=== PATIENT | female | born 1935 | race Caucasian/White ===

== ENCOUNTER 2019-06-09 08:30 | Day surgery (SDC) | payer MEDICARE ==
[2019-06-08 10:31] VITALS: BMI 27.3
[2019-06-09] MEDS ORDERED: ceFAZolin Sodium (SDC) 2 GM/100 ML BAG ONE (09:20)
[2019-06-09 09:41] LABS: #Eosinphils 0.1 thou/uL (0.0-0.7); #Lymphocytes 1.8 thou/uL (1.20-3.40); #Monocytes 0.5 thou/uL (0.11-0.59); #Neutrophils 2.3 thou/uL (1.40-6.50); %Basophils 0.8 % (0.0-1.0); %Eosinophils 1.4 % (0.0-10.0); %Lymphocytes 37.6 % (21.0-51.0); %Monocytes 10.4 % (0.0-10.0); %Neutrophils 49.9 % (42.0-75.0); Hemoglobin 14.7 g/dL (12.0-16.0); Mean Corpuscular HGB CONC 33.4 g/dL (32.0-36.0); Mean Corpuscular Volume 95.8 fL (78.0-98.0); Mean Platelet Volume 6.5 fL (7.4-10.4); Platelet Count 219 thou/uL (130-400); RBC Distribution Width 12.6 % (11.5-14.5); Red Blood Cell (RBC) Count 4.58 mill/uL (4.20-5.40); White Blood Cell (WBC) Count 4.7 thou/uL (4.8-10.8)
[2019-06-09] MEDS ORDERED: Lidocaine 1% (PF) 30 ML VIAL ONE (11:11)
[2019-06-09] MEDS ORDERED: Ondansetron PF 4 MG/2 ML Vial ONE (15:38)
[2019-06-09] MEDS ORDERED: PROPOFOL 200 MG/20 ML VIAL ONE (15:38)
--- NOTE | 2019-06-09 16:11 | OP ---
DATE OF PROCEDURE: 06/09/2019 PREOPERATIVE DIAGNOSIS: Left carpal tunnel syndrome. POSTOPERATIVE DIAGNOSIS: Left carpal tunnel syndrome. PROCEDURE PERFORMED: 1. Left open carpal tunnel release 2. Placement of volar splint Left arm PRECISION MACHINING INSTRUCTOR: None. BLOOD LOSS: Minimal. COMPLICATIONS: None. ANESTHESIA: The patient had a TIVA with local. DISPOSITION: She went back to Day [facility] in stable condition. INDICATIONS: This 83-year-old female who since breaking her wrist has had increasing numbness and tingling secondary to pressure on median nerve, and at this time, is presenting for release of this. DESCRIPTION OF PROCEDURE: After all appropriate consent forms were explained and signed, the patient was taken back to the operating room and at this time was given IV sedation. A well-padded tourniquet was placed on the left arm and the arm was then prepped and draped in the standard surgical fashion. The incision was then drawn out and infiltrated with plain lidocaine. Limb was exsanguinated and tourniquet taken up to 250 mmHg. At this time, using Loupe magnification, a 15 blade was used to incise down through skin. Bipolar cautery was used to coagulate any brisk venous bleeding. We then placed a small hemostat to protect the underlying median nerve and transected the transverse carpal ligament using multiple 15 blades as well as scissors. Once this was done, a small finger was inserted to palpate for any remaining bands. At this time, a moist Ray-Donnell sponge was placed into the wound. Tourniquet was let down and pressure was held. Bipolar cautery used to coagulate any brisk venous bleeding. The wound was then irrigated with saline solution and we then evaluated the nerve. The nerve was found to be significantly injected, the nerve was intact, there were no masses noted, and the underlying flexor tendons were in good condition. At this time, we irrigated and dried the wound. We then placed multiple nylon stitches to close the incision. A bulky sterile hand dressing and a small volar splint were then placed. The patient was then awakened and taken to recovery in stable condition. All counts were correct at the end of the case. The patient received preoperative IV antibiotics. Job ID: [id number] [facility]
== END 2019-06-09 12:48 | disposition home or self-care (01) ==
LOC: SDC 08:30
PROVIDERS: ATTEND Orthopaedic Surgery
PROC: 01N50ZZ Release Median Nerve, Open Approach (ICD-10-PCS; principal; 2019-06-09)
DX: G56.02 Carpal tunnel syndrome, left upper limb (principal); M81.0 Age-related osteoporosis without current pathological fracture; D64.9 Anemia, unspecified; E78.00 Pure hypercholesterolemia, unspecified; G40.909 Epilepsy, unspecified, not intractable, without status epilepticus; Z88.2 Allergy status to sulfonamides; Z88.5 Allergy status to narcotic agent; Z79.51 Long term (current) use of inhaled steroids; Z79.82 Long term (current) use of aspirin; Z79.899 Other long term (current) drug therapy
CPT/HCPCS: 85025; J0690; J2001; J2405; J2704

== ENCOUNTER 2022-04-17 14:17 | Outpatient (CLI) | payer MEDICARE ==
[2022-04-17 16:02] LABS: #Monocytes 0.7 10x3/uL (0.0-1.1); #Neutrophils 2.4 10x3/uL (1.5-8.4); %Basophils 0.5 % (0.0-2.0); %Eosinophils 0.7 % (0.0-6.0); %Lymphocytes 46.9 % (18.0-47.0); %Monocytes 11.3 % (0.0-10.0); %Neutrophils 40.4 % (40.0-75.0); Hemoglobin 14.4 g/dL (12.0-15.5); Mean Corpuscular HGB CONC 35.5 g/dL (32.0-36.0); Mean Corpuscular Hemoglobin 33.4 pg (27.0-33.0); Mean Corpuscular Volume 94.2 fl (81.6-98.3); Mean Platelet Volume 9.4 fl (7.4-10.4); Platelet Count 251 10x3/uL (150-450); RBC Distribution Width 12.9 % (11.5-14.5); Red Blood Cell (RBC) Count 4.31 10x6/uL (3.90-5.03); White Blood Cell (WBC) Count 5.9 10x3/uL (3.5-10.5)
[2022-04-17 16:22] LABS: Anion Gap 16 mmol/L (10-20); BUN (Urea Nitrogen) 12 mg/dL (9.8-20.1); Calc. Creatinine Clearance 0 mL/min (70-130); Calcium 9.5 mg/dL (7.8-10.44); Carbon Dioxide 25 mmol/L (23-31); Chloride 103 mmol/L (98-107); Glucose 89 mg/dL (83-110); Potassium 3.8 mmol/L (3.5-5.1); Sodium 140 mmol/L (136-145)
[2022-04-17 16:23] LABS: PTT 26.7 sec (22.0-33.0); Prothrombin Time 11.2 sec (9.5-12.1)
== END 2022-04-17 14:18 | disposition home or self-care (01) ==
LOC: LABBT 14:17
PROVIDERS: ATTEND Orthopaedic Surgery
DX: Z01.818 Encounter for other preprocedural examination (principal); M12.811 Other specific arthropathies, not elsewhere classified, right shoulder; Z20.822 Contact with and (suspected) exposure to COVID-19
CPT/HCPCS: 80048; 85025; 85610; 85730; 87081; 93005; U0003; U0005; 93010

== ENCOUNTER 2022-04-22 05:36 | Observation (INO) | payer MEDICARE ==
[2022-04-21 09:37] VITALS: BMI 28.3
[2022-04-22] MEDS ORDERED: Sodium Chloride 0.9% 100 ML ONE ×2 (05:45→06:56)
[2022-04-22] MEDS ORDERED: Tranexamic Acid 1,000 MG/10 ML VIAL ONE (05:45)
[2022-04-22] MEDS ORDERED: Vancomycin 1 GM/200 ML BAG ONE (05:45)
[2022-04-22] MEDS ORDERED: Midazolam HCl 2 mg/2 ml Vial ONE (06:34)
[2022-04-22] MEDS ORDERED: Fentanyl 100 MCG/2 ML VIAL ONE ×2 (06:34→11:34)
[2022-04-22] MEDS ORDERED: Lidocaine 1% (PF) 30 ML VIAL ONE (06:34)
[2022-04-22] MEDS ORDERED: CEFAZOLIN 2 GM VIAL ONE (06:56)
[2022-04-22] MEDS ORDERED: Fentanyl 100 MCG/2 ML VIAL IV PRN (06:56)
[2022-04-22] MEDS ORDERED: Ondansetron PF 4 MG/2 ML Vial IVP PRN (07:00)
[2022-04-22] MEDS ORDERED: Ropivacaine 0.2% 550 ML 550 ML NERVE BLCK SCH (07:00)
[2022-04-22] MEDS ORDERED: HYDROcodone/Acetaminophen 5/325 mg Tablet PO PRN (07:00)
[2022-04-22] MEDS ORDERED: traMADol HCl 50 MG TAB PO PRN ×2 (07:00)
[2022-04-22] MEDS ORDERED: Zolpidem Tartrate 5 MG TAB PO PRN (07:00)
[2022-04-22] MEDS ORDERED: Promethazine HCl 25 MG/ML VIAL IM PRN ×2 (07:00→09:52)
[2022-04-22] MEDS ORDERED: Rocuronium Bromide 10 MG/ML (10ML VIAL) ONE (07:30)
[2022-04-22] MEDS ORDERED: PROPOFOL 200 MG/20 ML VIAL ONE (07:30)
[2022-04-22] MEDS ORDERED: Lidocaine 1% PF 5 ML VIAL ONE (07:30)
[2022-04-22] MEDS ORDERED: Metoclopramide HCl 10 MG/2 ML VIAL ONE (07:30)
[2022-04-22] MEDS ORDERED: Dexamethasone 20 MG/5 ML VIAL ONE (07:30)
[2022-04-22] MEDS ORDERED: Ropivacaine 0.5% HCl/PF (150 MG/30 ML VIAL) ONE (07:30)
[2022-04-22] MEDS ORDERED: Succinylcholine 200 MG/10 ml SYRINGE FS ONE (07:30)
[2022-04-22] MEDS ORDERED: Glycopyrrolate 0.2 MG/ML 5 ML SYRINGE ONE (07:30)
[2022-04-22] MEDS ORDERED: Ondansetron PF 4 MG/2 ML Vial ONE (07:30)
[2022-04-22] MEDS ORDERED: Phenylephrine 10 MG/ML VIAL ONE (07:54)
[2022-04-22] MEDS ORDERED: SUGAMMADEX SODIUM 200 MG/2 ML VIAL ONE (09:39)
[2022-04-22] MEDS ORDERED: Promethazine HCl 25 MG/ML VIAL IVPB PRN (09:52)
[2022-04-22] MEDS ORDERED: Ondansetron HCl/PF 4 MG/2 ML Vial IVP PRN (09:52)
[2022-04-22] MEDS ORDERED: Acetaminophen 325 MG TAB PO PRN (09:53)
[2022-04-22] MEDS ORDERED: diphenhydrAMINE 50 MG CAP PO PRN (09:53)
[2022-04-22] MEDS ORDERED: Milk Of Magnesia 30 ML UDCUP PO PRN (09:53)
[2022-04-22] MEDS ORDERED: Bisacodyl 10 MG SUPP PR PRN (09:53)
[2022-04-22] MEDS ORDERED: Sodium Chloride 0.9% 1,000 ML IV SCH (10:00)
[2022-04-22] MEDS ORDERED: Ropivacaine HCl/PF 250 ML in Premix Bag 1 BAG NERVE BLCK SCH (10:15)
[2022-04-22] MEDS: Ketorolac Tromethamine 30 MG/ML VIAL IVP SCH ×2 (13:17→17:30)
[2022-04-22] MEDS ORDERED: Docusate 100 MG CAP PO PRN (16:04)
[2022-04-22] MEDS ORDERED: OXAPROZIN 600 MG PO PRN (16:06)
[2022-04-22] MEDS ORDERED: Oxybutynin 5 MG TAB PO PRN (16:08)
[2022-04-22] MEDS ORDERED: Vancomycin 1 GM in Premix Bag 1 BAG IVPB SCH (19:00)
[2022-04-22] MEDS ORDERED: ceFAZolin 2 GM/Dextrose 50 ML 2 GM in Premix Bag 1 BAG IVPB SCH (20:00)
[2022-04-22] MEDS ORDERED: Senokot 8.6 MG TAB PO SCH (21:00)
[2022-04-22] MEDS ORDERED: LINZESS 145 MCG CAP PO SCH (21:00)
[2022-04-22] MEDS: Famotidine 20 MG TAB PO SCH (21:16)
[2022-04-23] MEDS: Ketorolac Tromethamine 30 MG/ML VIAL IVP SCH ×3 (00:07→12:49)
[2022-04-23] MEDS ORDERED: CEFAZOLIN 2 GM in Sodium Chloride 0.9% 100 ML IVPB SCH ×2 (04:00→15:15)
[2022-04-23] MEDS: HYDROcodone/Acetaminophen 5/325 mg Tablet PO PRN ×3 (05:03→16:03)
[2022-04-23] MEDS ORDERED: Levothyroxine Sodium 50 MCG TAB PO SCH (06:00)
[2022-04-23] MEDS ORDERED: Aspirin 81 mg Enteric Coated Tablet PO SCH (09:00)
[2022-04-23] MEDS ORDERED: Fluticasone Propionate Nasal Spray 16 gm Bottle NASAL SCH (09:00)
[2022-04-23] MEDS: Famotidine 20 MG TAB PO SCH (09:31)
[2022-04-23] MEDS ORDERED: ROPIVACAINE 0.2% NERVE BLCK SCH (11:30)
[2022-04-23] MEDS ORDERED: Ropivacaine 0.2% 550 ML 750 ML NERVE BLCK SCH (11:30)
[2022-04-23 15:29] VITALS: BP 120/64; TEMP 99.1
== END 2022-04-23 16:20 | disposition home or self-care (01) ==
LOC: SDC 05:36 → SURG B 09:53
PROVIDERS: ADMIT Orthopaedic Surgery; ATTEND Orthopaedic Surgery
PROC: 0RRJ00Z Replacement of Right Shoulder Joint with Reverse Ball and Socket Synthetic Substitute, Open Approach (ICD-10-PCS; principal; 2022-04-22)
PROC: 3E0T3BZ Introduction of Anesthetic Agent into Peripheral Nerves and Plexi, Percutaneous Approach (ICD-10-PCS; 2022-04-22)
DX: M12.811 Other specific arthropathies, not elsewhere classified, right shoulder (principal); M75.81 Other shoulder lesions, right shoulder; M81.0 Age-related osteoporosis without current pathological fracture; G40.909 Epilepsy, unspecified, not intractable, without status epilepticus; I51.9 Heart disease, unspecified; E07.9 Disorder of thyroid, unspecified; Z79.82 Long term (current) use of aspirin; Z79.83 Long term (current) use of bisphosphonates; Z79.890 Hormone replacement therapy; Z79.899 Other long term (current) drug therapy; Z88.2 Allergy status to sulfonamides; Z88.5 Allergy status to narcotic agent
CPT/HCPCS: 23472; 64416; 97110; 97116 ×2; 97139 ×2; 97530; A4306 ×2; C1713 ×5; C1776 ×2; 96374; 96375; 96376; G0378; J1100; J1885; J2001; J2250; J2370; J2405; J2704; J2765; J2795; J3010; J3370; J3490